=== PATIENT | female | born 1985 | race Caucasian/White ===

== ENCOUNTER 2017-04-02 14:14 | Inpatient (IN) | payer BC ==
[~2017-04-02] VITALS: Ht 162.7 cm; Wt 119.1 kg
[2017-04-24] VITALS (19 sets, daily range): BP systolic 114–146; BP diastolic 70–93; PULSE 78–98; TEMP 97.4–98.9
[2017-04-24 05:49] LABS: HEMOGLOBIN 12.6 g/dl (12.5-16.0); MEAN CELL VOLUME 87 fl (80.0-100.0); MEAN CORPUSCULAR HEMOGLOBIN 28 pg (27.0-31.0); MEAN CORPUSCULAR HGB CONC 32 g/dl (33.0-37.0); MEAN PLATELET VOLUME 10.3 fl (7.4-10.4); PLATELET COUNT 303 K/mm3 (130-400); RED BLOOD COUNT 4.47 M/mm3 (4.10-5.30); WHITE BLOOD COUNT 12.7 K/mm3 (4.8-10.8)
[2017-04-24 05:53] LABS: ADD PATHOLOGY DIFF REVIEW NO
[2017-04-24 06:02] LABS: BAND 5 % (0-10); LYMPHOCYTE 23 % (20.0-51.0); NEUTROPHILS 67 % (42.0-75.2); TOTAL CELLS COUNTED 100
[2017-04-24 06:03] LABS: ANISOCYTOSIS 1+; POLYCHROMASIA 1+
[2017-04-24] MEDS ORDERED: PRENATAL1 TA7 PO (06:37)
[2017-04-24] MEDS ORDERED: NATURAL MAGNES200 MG PO (06:37)
[2017-04-24] MEDS ORDERED: AMBIEN 10MG10 MG PO (06:38)
[2017-04-24] MEDS ORDERED: PERCOCET 325 MG1 TA2 PO (17:25)
[2017-04-24] MEDS ORDERED: MOTRIN 800800 MG/TAB PO (17:25)
[2017-04-25 02:00] VITALS: BP 141/77; PULSE 72; TEMP 97.8
[2017-04-25 08:00] VITALS: BP 125/76; PULSE 80; TEMP 97.7
[2017-04-25 16:30] VITALS: BP 132/74; PULSE 80; TEMP 97.6
[2017-04-25 21:00] VITALS: BP 127/74; PULSE 84; TEMP 98.6
[2017-04-26 07:15] VITALS: BP 137/84; PULSE 80; TEMP 97.9
[2017-04-26] MEDS ORDERED: PERCOCET 325 MG1 TA2 PO (10:46)
[2017-04-26] MEDS ORDERED: IBU600 MG PO (10:46)
[2017-04-26 17:26] VITALS: BP 134/84; PULSE 81; TEMP 98.6
== END 2017-04-26 18:15 | disposition home or self-care (01) | DRG 765 ==
LOC: OB 04-15 14:13
PROVIDERS: Obstetrics & Gynecology
PROC: 10D00Z1 Extraction of Products of Conception, Low, Open Approach (ICD-10-PCS; principal; 2017-04-24)
PROC: 0UB70ZZ Excision of Bilateral Fallopian Tubes, Open Approach (ICD-10-PCS; 2017-04-24)
DX: O34.211 Maternal care for low transverse scar from previous cesarean delivery (principal); O36.0130 Maternal care for anti-D [Rh] antibodies, third trimester, not applicable or unspecified; N85.8 Other specified noninflammatory disorders of uterus; O69.81X0 Labor and delivery complicated by cord around neck, without compression, not applicable or unspecified; Z40.03 Encounter for prophylactic removal of fallopian tube(s); Z3A.39 39 weeks gestation of pregnancy; Z37.0 Single live birth
CPT/HCPCS: J0690; J1885; J2270; J2370; J2405; J2590; J2791; J7120

== ENCOUNTER → 2018-03-09 | Outpatient (REF) ==
[~2018-03-09] MED LIST: AMBIEN 10MG10 MG PO; IBU600 MG PO; MOTRIN 800800 MG/TAB PO; NATURAL MAGNES200 MG PO; PERCOCET 325 MG1 TA2 PO; PRENATAL1 TA7 PO
== END ==
LOC: ZLAB.WCH 18:15
DX: Z01.89 Encounter for other specified special examinations (principal)

== ENCOUNTER → 2018-06-15 | Outpatient (REF) | LOC: ZLAB.WCH 19:09 | DX: Z01.89 Encounter for other specified special examinations (principal) ==